=== PATIENT | male | born 1985 | race Caucasian/White ===

== ENCOUNTER 2019-07-06 13:41 | Emergency (ER) | payer OTHER, SELFPAY ==
--- NOTE | ~2019-07-06 | XR_ITS ---
EXAMINATION: XR chest 2V DATE: 07/06/2019 14:01 INDICATION: Chest pain and shortness of breath TECHNIQUE: PA and lateral views of the chest are obtained. COMPARISON: 03/22/2015 FINDINGS: The lungs are free of acute opacities. There is no pleural effusion or pneumothorax. The ca rdiomediastinal silhouette is normal. There is mild thoracic spondylosis. IMPRESSION: 1. No acute cardiopulmonary abnormality. Reviewed, dictated and finalized at location B.
--- NOTE | 2019-07-06 13:46 | ECG_ITS ---
Measurements Intervals [place] Rate: 98 P: 35 NM: 149 QRS: 37 QRSD: 102 T: 3 QT: 327 QTc: 418 Interpretive Statements SINUS RHYTHM MINIMAL Q WAVES- INFERIOR LEADS BORDERLINE T WAVE ABNORMALITY- INFERIOR LEADS BASELINE WANDER- V1 BORDERLINE ECG Electronically Signed On 07-06-2019 14:32:56 CDT by Arnold Coyle D.O.
[2019-07-06 13:47] VITALS: BP 176/92; PULSE 102; RESP 23; TEMP 36.8; O2SAT 100
[2019-07-06 13:52] VITALS: BP 176/92; PULSE 106; PULSE 110; RESP 15; O2SAT 100
--- NOTE | 2019-07-06 13:52 | ED.CHESTPAIN ---
HPI - Chest Pain General Chief Complaint: Chest Pain Stated Complaint: cp Time Seen by Provider: 07/06/19 13:46 Source: patient and RN notes reviewed Mode of arrival: ambulatory Limitations: no limitations History of Present Illness HPI narrative: Pt is a 34 y/o male who presents to the ED with c/o lt sided chest pain starting this morning. He notes that he was evaluated at an ED in [place] roughly 1 month ago for similar symptoms, and states that he was diagnosed with costochondritis. Pt notes that he woke up this morning around 7:30 AM with pain in the lt side of his chest. He describes his pain as someone pushing on his chest, but states that his pain intermittently aggravates into a stabbing pain. Pt currently rates his pain at 4-5/10. He also reports SOB, numbness/tingling in his lt arm and lt hand, and lightheadedness, but denies any rhinorrhea, sore throat, or cough. Pt states that he took Ibuprofen 600 mg for his pain, but denies having any relief. MD complaint: chest pain Onset (ago): hour(s) (6) Onset: awoke with symptoms Pain location: left chest Quality: other (stabbing) Relieving factors: nothing Associated symptoms: dyspnea and other (lightheadedness; numbness/tingling in lt arm and lt hand) Treatment prior to arrival: other (Ibuprofen) Related Data Home Medications Medication Instructions Recorded Confirmed pantoprazole PO 07/06/19 Allergies Allergy/AdvReac Type Severity Reaction Status Date / Time No Known Allergies Allergy Unknown Verified 07/06/19 13:51 Review of Systems Review of Systems: All systems reviewed & are unremarkable except as noted in HPI and below ENT: Denies nasal discharge and Denies sore throat Cardiovascular: Cardiovascular: Reports chest pain (lt sided) Respiratory: Respiratory: Denies cough and Reports dyspnea Neurologic: Reports numbness (lt arm and lt hand), Reports tingling (lt arm and lt hand) and Reports other (lightheadedness) PMF Past Medical History Medical History (Updated 07/06/19 @ 18:08 by Adrian Reed MD) Bronchitis Costochondritis GERD (gastroesophageal reflux disease) HLD (hyperlipidemia) Strep pharyngitis Surgical History Surgical History History of placement of ear tubes Social History Social History Smoking status: Never smoker Gender identity (if verbalized by the patient): Male Exam Narrative: Exam Narrative: GENERAL: Well-appearing, well-nourished, and in no acute distress. HEAD: Normocephalic, atraumatic. ENT:Mucous membranes moist. Neck: Pinpoint discomfort with reproducible tingling down left arm with palpation at C5 paraspinally but no midline tenderness. CHEST: Clear to auscultation. No respiratory distress. Mild discomfort with palpation anterior chest wall superiorly near the collarbone. HEART: Regular rate and rhythm. Normal peripheral pulses. ABDOMEN: Soft, nontender, nondistended. EXTREMITIES: Normal range of motion. No edema. SKIN: Warm, dry, no rash. NEURO: No focal deficits with sharp touch testing to left upper extremity with using a broken tongue depressor. Alert and oriented x3. Course Course Emergency Course: Patient reports arm tingling is been going on for months but there is no anesthesia on exam. Troponins negative x2 and d-dimer negative. Suspect musculoskeletal component with cervical radiculopathy. Recommend scheduled anti-inflammatories and follow-up with PCP as he may require an MRI if symptoms persist. Vital Signs Vital signs: Vital Signs Temperature 98.3 F 07/06/19 13:47 Pulse Rate 102 H 07/06/19 13:47 Respiratory Rate 23 H 07/06/19 13:47 Blood Pressure 176/92 H 07/06/19 13:47 Pulse Oximetry 100 07/06/19 13:47 Temperature 98.3 F 07/06/19 13:47 Pulse Rate 82 07/06/19 17:13 Respiratory Rate 18 07/06/19 17:13 Blood Pressure 129/61 07/06/19 15:42 Pulse Oximetry 98 0
[2019-07-06 14:13] LABS: Basophils Percent Auto 0.3 % (0.2-1.2); Eosinophils Absolute Auto 0.1 K/mm3 (0-0.3); Eosinophils Percent Auto 0.8 % (0-4.4); Hematocrit 42.6 % (42.0-52.0); Hemoglobin 14.3 g/dL (14.0-18.0); Immature Granulocyte Absolute 0.04 K/mm3 (0.00-0.031); Immature Granulocyte Percent A 0.5 % (0-0.5); Lymphocytes Absolute Auto 2.07 K/mm3 (0.9-3.2); Lymphocytes Percent Auto 23.7 % (18.3-44.2); Mean Corpuscular HGB Conc 33.6 g/dl (32-36); Mean Corpuscular Hemoglobin 29.1 pg (26-34); Mean Corpuscular Volume 86.8 fl (80-100); Monocytes Percent Auto 11.3 % (2.6-8.5); Neutrophils Absolute Auto 5.5 K/mm3 (1.3-6.7); Neutrophils Percent Auto 63.4 % (45.5-73.1); Platelet Count Result 307 k/mm3 (150-375); Red Blood Count 4.91 M/mm3 (4.6-6.20); White Blood Count 8.7 K/mm3 (4.5-10.0)
[2019-07-06 14:22] LABS: INR 0.9; Prothrombin Time 12.3 Seconds (11.1-14.7)
[2019-07-06 14:23] LABS: Partial Thromboplastin Time 27.5 SECONDS (22.3-36.8)
[2019-07-06 14:25] LABS: Blood Urea Nitrogen 11 mg/dL (9-20); Carbon Dioxide 29 mmol/L (22-30); Chloride 101 mmol/L (98-107); Estimated CRCL calculation 105 ml/min; Estimated Glomerular Filt Rate > 60; Glucose 88 mg/dL (75-110); Potassium 3.7 mmol/L (3.4-5.0); Sodium 138 mmol/L (137-145)
[2019-07-06 14:37] LABS: Troponin I < 0.012 ng/mL (0.000-0.034)
[2019-07-06 14:56] VITALS: BP 138/86; PULSE 89; RESP 15; O2SAT 99
[2019-07-06 15:34] LABS: D Dimer 0.27 ug/mL (<0.48)
[2019-07-06 15:42] VITALS: BP 129/61; PULSE 86; RESP 19; O2SAT 97
[2019-07-06 17:13] VITALS: PULSE 82; RESP 18; O2SAT 98
[2019-07-06 17:36] LABS: Troponin I < 0.012 ng/mL (0.000-0.034)
[2019-07-06 18:22] VITALS: BP 154/89; PULSE 78; RESP 16; O2SAT 100
== END 2019-07-06 18:23 | disposition home or self-care (01) ==
PROVIDERS: Emergency Provider Emergency Medicine
DX: R07.89 Other chest pain (principal); M54.12 Radiculopathy, cervical region; E78.5 Hyperlipidemia, unspecified; K21.9 Gastro-esophageal reflux disease without esophagitis; R94.31 Abnormal electrocardiogram [ECG] [EKG]
CPT/HCPCS: 36415; 71046; 80048; 84484; 85025; 85380; 85610; 85730; 93005; 96365; 99284; A9270; J0131

== ENCOUNTER 2021-08-27 11:05 | Outpatient (CLI) | payer OTHER, SELFPAY ==
--- NOTE | ~2021-08-27 | XR_ITS ---
EXAM: XR lumbar spine 2-3V HISTORY: M54.16 - Radiculopathy, lumbar region. RT SIDE PAIN . COMPARISON: None available. FINDINGS: 5 nonrib-bearing lumbar-type vertebral bodies. Pedicles intact. Normal vertebral body alig nment. Physiologic wedging at the thoracolumbar junction. Vertebral body heights preserved. Mild disc narrowing at L3-4 and L4-5, with marginal osteophytosis at L4-5. Facet sclerosis at L4-5 and L5-S1. No fracture or dislocation. IMPRESSION: Mild lower lumbar degenerative disc disease and facet arthropathy. Reviewed, dictated and finalized at location K.
--- NOTE | ~2021-08-27 | XR_ITS ---
EXAM: XR_CERV2-3V_CR HISTORY: M54.2 - Cervicalgia, LT SIDE PAIN . COMPARISON: None available. FINDINGS: Craniocervical association and atlantoaxial joint are normal. No prevertebral soft tissue swelling. Lateral scoliosis centered at the cervicothoracic junction, may be positional. Trace deandre listhesis from C2 to C4. Marginal osteophytosis at C5-6. Normal facets and posterior elements. IMPRESSION: Trace anterolistheses of the upper cervical spine, presumably on a degenerative basis. Mi ld degenerative disc disease at C5-6. Reviewed, dictated and finalized at location K. IMPRESSION: Trace anterolistheses of the upper cervical spine, presumably on a degenerative basis. Mild degenerative disc disease at C5-6.
== END 2021-08-27 11:06 | disposition home or self-care (01) ==
LOC: ANHIMG 11:11
PROVIDERS: PCP Family Medicine; Visit Provider Nurse Practitioner Family
DX: R20.0 Anesthesia of skin (principal); R20.2 Paresthesia of skin; M54.16 Radiculopathy, lumbar region; M51.36 Other intervertebral disc degeneration, lumbar region; M50.322 Other cervical disc degeneration at C5-C6 level
CPT/HCPCS: 72040; 72100

== ENCOUNTER → 2021-10-30 13:51 | Outpatient (CLI) | payer OTHER, SELFPAY ==
--- NOTE | ~2021-10-30 | CT_ITS ---
EXAMINATION: CT brain wo con DATE: 10/30/2021 14:05 INDICATION: Headache. Visual disturbance. TECHNIQUE: Computed tomography (CT) of the head was performed without intravenous contrast. The mA wa s adjusted according to patient size. Iterative reconstruction technique was employed. Exam dose: 59 9.57 mGy-cm total exam DLP. COMPARISON: None FINDINGS: Mild bilateral basal ganglia calcification. Normal ventricular size. Normal valdez-white devin er differentiation. No intracranial mass lesion or hemorrhage or cerebrovascular accident is detected . No midline shift or mass effect. No subdural or epidural hematoma. The mastoid air cells and included paranasal sinuses are normally developed and aerated. No fracture or bone destruction of the cranial vault. IMPRESSION: No significant intracranial abnormality Reviewed, dictated and finalized at Location A. Reviewed, dictated and finalized at location B.
== END ==
PROVIDERS: PCP Family Medicine; Visit Provider Nurse Practitioner
DX: R51.9 Headache, unspecified (principal); H53.9 Unspecified visual disturbance
CPT/HCPCS: 70450

== ENCOUNTER → 2022-03-13 15:46 | Outpatient (CLI) | payer OTHER, SELFPAY ==
--- NOTE | ~2022-03-13 | US_ITS ---
US soft tissue groin LT 03/13/2022 16:08 Indication: Left lower quadrant pain for one month Procedure: High-resolution ultrasound of the left lower abdomen in the area of palpable concern. Comparison: No prior studies for comparison. Findings: There are multiple normal-appearing lymph nodes in the left lower quadrant, largest measuri ng 2 cm. These lymph nodes can retain their normal fatty hilum. No hernia is visualized. Impression: 1: Normal appearing lymph nodes measuring up to 2 cm in the area of palpable concern in the left lowe r quadrant, likely reactive. Reviewed, dictated and finalized at location A. PT COORDINATOR Impression: 1: Normal appearing lymph nodes measuring up to 2 cm in the area of palpable co ncern in the left lower quadrant, likely reactive.
== END ==
PROVIDERS: PCP Nurse Practitioner; Visit Provider Nurse Practitioner
DX: R10.32 Left lower quadrant pain (principal)
CPT/HCPCS: 76882

== ENCOUNTER 2023-04-15 10:05 | Outpatient (CLI) | payer OTHER, SELFPAY ==
[2023-04-15 18:46] LABS: Hematocrit 46.5 % (42.0-52.0); Hemoglobin 15.6 g/dL (14.0-18.0); Mean Corpuscular HGB Conc 33.5 g/dl (32-36); Mean Corpuscular Hemoglobin 29.6 pg (26-34); Mean Corpuscular Volume 88.2 fl (80-100); Platelet Count Result 325 k/mm3 (150-375); Red Blood Count 5.27 M/mm3 (4.6-6.20); Red Cell Distribution Width 13.2 % (11.5-14.5); White Blood Count 8.2 K/mm3 (4.5-10.0)
[2023-04-15 21:05] LABS: Alanine Aminotransferase 50 U/L (6-50); Albumin Level 4.7 g/dL (3.5-5.1); Alkaline Phosphatase 87 U/L (38-126); Anion Gap 11 mmol/L (8-16); Aspartate Amino Transferase 67 U/L (17-59); Bilirubin,Total 1.1 mg/dL (0.2-1.3); Blood Urea Nitrogen 18 mg/dL (9-20); Calcium 9.4 mg/dL (8.4-10.2); Carbon Dioxide 29 mmol/L (22-30); Chloride 99 mmol/L (98-107); Cholesterol 260 mg/dL (0-200); Estimated Glomerular Filt Rate > 60; Glucose 75 mg/dL (65-110); HDL Direct 44 mg/dL; Potassium 4.2 mmol/L (3.4-5.0); Sodium 139 mmol/L (137-145); Triglycerides 86 mg/dL (<150)
[2023-04-15 21:16] LABS: LDL Cholesterol Direct 169 mg/dL
[2023-04-18 23:33] LABS: Vitamin D 1,25 (OH)2 Total 52 pg/mL (18-72); Vitamin D2 1,25 (OH)2 <8 pg/mL; Vitamin D3 1,25 (OH)2 52 pg/mL
== END 2023-04-15 10:06 | disposition home or self-care (01) ==
LOC: ANHGOSHLAB 10:06
PROVIDERS: PCP Family Medicine; Visit Provider Nurse Practitioner Family
DX: E78.5 Hyperlipidemia, unspecified (principal); E55.9 Vitamin D deficiency, unspecified; Z13.29 Encounter for screening for other suspected endocrine disorder
CPT/HCPCS: 36415; 80053; 80061; 82652; 84443; 85027

== ENCOUNTER 2023-04-16 14:49 | Outpatient (CLI) | payer OTHER, SELFPAY ==
[2023-04-16 20:37] LABS: Hepatitis B Surface Antigen Negative (Negative)
[2023-04-16 20:46] LABS: HAV RESULT Negative (Negative); Hepatitis B Core IgM Result Negative (Negative)
[2023-04-16 20:55] LABS: Hepatitis C Virus Antibody Negative (Negative)
== END 2023-04-16 14:50 | disposition home or self-care (01) ==
PROVIDERS: PCP Family Medicine; Visit Provider Nurse Practitioner Family
DX: R74.8 Abnormal levels of other serum enzymes (principal)
CPT/HCPCS: 36415; 80074

== ENCOUNTER → 2023-04-20 08:54 | Outpatient (CLI) | payer OTHER, SELFPAY ==
--- NOTE | ~2023-04-20 | CT_ITS ---
EXAMINATION: CT abdomen pelvis wo con DATE: 04/20/2023 09:07 INDICATION: Chronic prostatitis TECHNIQUE: Computed tomography (CT) of the abdomen and pelvis was performed without intravenous contr ast. Automated exposure control and iterative reconstruction technique were employed. Exam dose: 121 0.73 mGy-cm total exam DLP. COMPARISON: None. FINDINGS: The lung bases are clear. Normal heart size. No pericardial or pleural effusion. The liver, gallbladder, bile ducts, spleen, pancreas, pancreatic duct, and adrenal glands and kidneys are unremarkable. No urinary tract calculus or hydroureteronephrosis. The urinary bladder is evacuat ed. The prostate gland and seminal vesicles are unremarkable. Very small sliding hiatal hernia is suggested. Normal appendix. No bowel obstruction, bowel wall thic kening, pneumatosis or intraperitoneal free air. Normal caliber of the abdominal aorta. No intraperitoneal or retroperitoneal or pelvic mass lesion or adenopathy or ascites. No suspicious osteolytic or osteoblastic lesions. IMPRESSION: Suggestion of very small sliding hiatal hernia; otherwise unremarkable examination Reviewed, dictated and finalized at Location A. Reviewed, dictated and finalized at location L. ATIENT PHLEBOTOMIST IMPRESSION: Suggestion of very small sliding hiatal hernia; otherwise unremark able examination
== END ==
PROVIDERS: PCP Urology; Visit Provider Urology
DX: N41.1 Chronic prostatitis (principal)
CPT/HCPCS: 74176

== ENCOUNTER 2023-06-30 22:13 | Emergency (ER) | payer OTHER, SELFPAY ==
--- NOTE | ~2023-06-30 | XR_ITS ---
EXAMINATION: XR chest 2V DATE: 06/30/2023 22:32 INDICATION: Chest pain TECHNIQUE: PA and lateral views of the chest are obtained. COMPARISON: 07/06/2019 FINDINGS: The lungs are free of acute opacities. No pleural effusion or pneumothorax. The cardiomedia stinal silhouette is normal. The visualized bones and soft tissues are unremarkable. IMPRESSION: 1. No acute cardiopulmonary abnormality. Reviewed, dictated and finalized at location F.
[2023-06-30 22:20] VITALS: BP 172/100; PULSE 90; RESP 18; TEMP 36.5; O2SAT 99
--- NOTE | 2023-06-30 22:21 | ECG_ITS ---
Measurements Intervals [place] Rate: 88 P: 43 MS: 149 QRS: 43 QRSD: 106 T: 16 QT: 348 QTc: 422 Interpretive Statements SINUS RHYTHM CONSIDER INFERIOR INFARCT, AGE INDETERMINATE BASELINE WANDER- V3 ABNORMAL ECG COMPARED TO ECG 07/06/2019 13:46:45 NO SIGNIFICANT CHANGES Electronically Signed On 07-01-2023 6:27:01 CDT by Arnold Coyle D.O.
[2023-06-30 22:29] LABS: Basophils Absolute Auto 0.1 K/mm3 (0.0-0.1); Basophils Percent Auto 0.5 % (0.2-1.2); Eosinophils Absolute Auto 0.1 K/mm3 (0-0.3); Eosinophils Percent Auto 0.5 % (0-4.4); Hematocrit 48.3 % (42.0-52.0); Hemoglobin 16.4 g/dL (14.0-18.0); Immature Granulocyte Absolute 0.05 K/mm3 (0.00-0.031); Immature Granulocyte Percent A 0.4 % (0-0.5); Lymphocytes Absolute Auto 3.12 K/mm3 (0.9-3.2); Lymphocytes Percent Auto 26.9 % (18.3-44.2); Mean Corpuscular Hemoglobin 29.3 pg (26-34); Mean Corpuscular Volume 86.4 fl (80-100); Mean Platelet Volume 9.5 fl (7.4-10.4); Monocytes Absolute Auto 1.1 K/mm3 (0.1-0.6); Monocytes Percent Auto 9.2 % (2.6-8.5); Neutrophils Absolute Auto 7.3 K/mm3 (1.3-6.7); Neutrophils Percent Auto 62.5 % (45.5-73.1); Platelet Count Result 354 k/mm3 (150-375); Red Blood Count 5.59 M/mm3 (4.6-6.20); Red Cell Distribution Width 12.7 % (11.5-14.5); White Blood Count 11.6 K/mm3 (4.5-10.0)
[2023-06-30 22:45] LABS: Prothrombin Time 13.2 Seconds (11.1-14.7)
[2023-06-30 22:46] LABS: Partial Thromboplastin Time 27.5 Seconds (22.3-36.8)
[2023-06-30 22:49] LABS: Alanine Aminotransferase 47 U/L (6-50); Albumin Level 4.9 g/dL (3.5-5.1); Alkaline Phosphatase 93 U/L (38-126); Anion Gap 6 mmol/L (8-16); Aspartate Amino Transferase 58 U/L (17-59); Bilirubin,Total 1.1 mg/dL (0.2-1.3); Blood Urea Nitrogen 19 mg/dL (9-20); Calcium 9.5 mg/dL (8.4-10.2); Carbon Dioxide 31 mmol/L (22-30); Chloride 99 mmol/L (98-107); Estimated CRCL calculation 113 ml/min; Estimated Glomerular Filt Rate > 60; Glucose 85 mg/dL (65-110); Lipase 48 U/L (23-300); Potassium 3.7 mmol/L (3.4-5.0); Sodium 136 mmol/L (137-145)
[2023-06-30 22:52] LABS: Troponin I < 0.012 ng/mL (0.000-0.034)
[2023-06-30 23:01] VITALS: BP 153/95; PULSE 83; RESP 11; O2SAT 96
[2023-06-30 23:06] VITALS: O2SAT 97
[2023-06-30 23:16] VITALS: BP 147/90; PULSE 82; RESP 13; O2SAT 96
--- NOTE | 2023-06-30 23:40 | ED.CHESTPAIN ---
HPI - Chest Pain General Chief Complaint: Chest Pain Stated Complaint: chest pain, high blood pressure Time Seen by Provider: 06/30/23 22:41 History of Present Illness HPI narrative: 38-year-old male with a history of GERD and anxiety presents to emergency department for palpitations and substernal chest pain at x2 days. Patient states when he is asleep at night he can feel his heart beating out of his chest describes it as ?thump thump?. States he home from work trip today and had his girlfriend check his blood pressure and it was 146/101. States they checked it multiple times after that continue to climb up to 168/117 and he became lightheaded which prompted him to come to the ER. Patient states earlier in the year he was told by his PCP to monitor his blood pressures daily for 2 weeks. States the reported back and the decision was made to not start antihypertensives at that time. He is currently not on any medications and denies history of hyperlipidemia, diabetes, CAD or family history of CAD. States that chest pain is nonradiating does not associated dyspnea, diaphoresis, nausea or vomiting. Patient states he took anxiety medications prior to arrival and his symptoms have resolved. States he is curious if he was having an anxiety attack prior to arrival. Related Data Allergies Allergy/AdvReac Type Severity Reaction Status Date / Time Sulfa (Sulfonamide Allergy Hives Verified 04/14/23 15:35 Antibiotics) Review of Systems Review of Systems: CONSTITUTIONAL: Denies fever, chills, or sweats. EYES: Denies visual changes, redness, or discharge. ENT: Denies rhinorrhea, congestion, sore throat, or otalgia. CARDIOVASCULAR: See HPI RESPIRATORY: Denies cough or dyspnea. GASTROINTESTINAL: Denies abdominal pain, nausea, vomiting, or diarrhea. GENITOURINARY: Denies dysuria or hematuria. SKIN: Denies rash or itching. MUSCULOSKELETAL: Denies back pain, joint pain, or myalgia. NEUROLOGIC: Denies headache, numbness, or weakness. PSYCHIATRIC: Denies anxiety or depression. [facility] Past Medical History Medical History Chronic neck and back pain Costochondritis GERD (gastroesophageal reflux disease) Hx of vertigo Seasonal allergies Surgical History Surgical History History of placement of ear tubes (~1986) Family History Family History Father Malignant neoplasm of prostate Social History Social History Smoking status: Never smoker Alcohol intake: current Alcohol use details: socially Substance use: never Substance use type: does not use Lack of Transportation: No Lack of Food: Never True Current Housing: I Have Housing Concerned About Future Housing: No Difficulty Paying Gas/Electric Bills: No Difficulty Paying for Meds: No Currently Unemployed: No Education: Trade/Vocational Certificate Difficulty w/ Childcare or Family Care: No Living arrangements: with family Occupation/Education: occupation Additional occupation/education comments: Sales Gender identity (if verbalized by the patient): Male Sexual Orientation (if Verbalized by the Patient): Straight or Heterosexual Agree to blood products: Yes Exam Narrative: GENERAL: Well-appearing, well-nourished, and in no acute distress. HEAD: Normocephalic, atraumatic. EYES: PERRLA and EOMI. ENT: Nares clear, no rhinorrhea or epistaxis. Mucous membranes moist. NECK: Supple. CHEST: Clear to auscultation. No respiratory distress. HEART: Regular rate and rhythm. No murmur heard. Normal peripheral pulses. ABDOMEN: Soft, nontender, nondistended, normal active bowel sounds. EXTREMITIES: Normal range of motion. No edema. Negative Homans bilaterally SKIN: Warm, dry, no rash. NEURO: No focal deficits. Alert and orie
[2023-06-30] MEDS: SODIUM CHLORIDE 0.9% IV 1,000 ML 999 ML IV CONT (23:53)
[2023-07-01 00:01] VITALS: BP 149/87; PULSE 73; RESP 17; O2SAT 97
[2023-07-01 00:31] VITALS: BP 157/86; PULSE 71; RESP 14; O2SAT 97
--- NOTE | 2023-07-01 01:13 | ECG_ITS ---
Measurements Intervals [place] Rate: 73 P: 34 CO: 155 QRS: 15 QRSD: 101 T: 1 QT: 384 QTc: 426 Interpretive Statements SINUS RHYTHM DELAYED PRECORDIAL R/S TRANSITION CONSIDER INFERIOR INFARCT, AGE INDETERMINATE ABNORMAL ECG COMPARED TO ECG 06/30/2023 22:18:39 NO SIGNIFICANT CHANGES Electronically Signed On 07-01-2023 6:34:40 CDT by Arnold Coyle D.O.
[2023-07-01 01:15] VITALS: PULSE 77; RESP 15; O2SAT 98
[2023-07-01 01:16] VITALS: BP 150/80; PULSE 79; RESP 18; O2SAT 97
[2023-07-01 01:54] LABS: Troponin I < 0.012 ng/mL (0.000-0.034)
[2023-07-01 02:00] VITALS: PULSE 82; RESP 18; O2SAT 98
[2023-07-01 02:15] VITALS: PULSE 79; RESP 19; O2SAT 98
== END 2023-07-01 02:57 | disposition home or self-care (01) ==
PROVIDERS: Emergency Medicine; Emergency Provider Physician Assistant; PCP Family Medicine
DX: R00.2 Palpitations (principal); R07.89 Other chest pain; R03.0 Elevated blood-pressure reading, without diagnosis of hypertension; K21.9 Gastro-esophageal reflux disease without esophagitis
CPT/HCPCS: 36415; 71046; 80053; 83690; 84484; 85025; 85610; 85730; 93005; 96360; 96361; 99284; J7030

== ENCOUNTER 2024-07-10 11:03 | Outpatient (CLI) | payer BC, SELFPAY ==
--- OUTSIDE RECORDS SUMMARY | 2024-07-10 12:36 | XMS_ITS | Clinical Summary ---
Author Organization [facility] Address [address] [place] [id number] Care Team Providers Care Tdp Displays Analyst Name Role Phone Unavailable Primary Care Provider Unavailabl e Social History Tobacco Use Types Packs/Day Years Used Date Smoking Tobacco: Never Assessed Sex and Gender Information Value Date Recorded Sex Assigned at Not on file Legal Sex Male 2:41 PM CDT Gender Identity Not on file Sexual Orientation Not on file Plan of Treatment Health Maintenance Due Date Last Done Comments Annual Physical 1989 Hepatitis C 2004 DTaP, Tdap and Td Vaccines ( 1 - Tdap) 2005 Hepatitis B Vaccines (1 of 3 - 19+ 3-dose series) 2005 COVID-19 Vaccine (2023-2 5 season) 2023 Influenza Adult (#1) 2024 HPV Vaccines Aged Out No longer eligi ble based on patient's age to complete this topic Meningococcal B Vaccine Aged Out No l onger eligible based on patient's age to complete this topic Meningococcal Vaccine Aged Out No moody kathy eligible based on patient's age to complete this topic Pneumococcal Vaccine: Pediat rics (0 to 5 Years) and At-Risk Patients (6 to 64 Years) Aged Out No longer eligible b ased on patient's age to complete this topic RSV Immunizations Under 20 Months Aged Out No longer eligible based on patient's age to complete this topic
--- OUTSIDE RECORDS SUMMARY | 2024-07-10 12:36 | XMS_ITS | Clinical Summary ---
Author Organization [facility] Address [address] [place] [address] Care Team Providers Care Gas Attendant Name Role Phone Beltran La MD Primary Care Provider [phone] Source Comments [facility],non-owned Affiliates and Associated Physician Practices is amultiple site organization consisting of ambulatory clinics and hospital sitesin [place], [place], [place] and [place]. This disclosure is being madepursuant to the Care Everywhere program and may not contain all information available regarding this patient. Last updated 17.[facility] Allergies No known active allergies Medications * Be aware that medications may not be up to date on this document. Alwaysverify current medications with the patient. Medication Sig Dispensed Refills Start Date End Date Status fluticasone propionate (FLONASE) 50 MCG/ACT nasal spray [place] 2 (two) sprays into each nostril once daily 1 g 09/11/2020 Active albuterol HFA (PROVENTIL;VENTOLIN;P ROAIR) 108 (90 Base) MCG/ACT inhaler Inhale 2 (two) puffs by mouth every 6 hours as needed for Wheezing or Cough 1 g 09/11/2020 Active Active Problems Problem Noted Date Diagnosed Date Anxiety 07/05/2019 Overview (09/11/2020): Last Assessment & Plan: Trial Wellbutrin 150 BMI 38.0-38.9,adult 07/05/2019 Overview (09/11/2020): BMI Follow-up includes: nutrition counseling, exercise counseling and education provided. Gastroesophageal reflux disease 07/05/2019 Motion sickness 07/05/2019 Overview (09/11/2020): Last Assessment & Plan: Rx Meclizine prn Can try scopolamine patches if meclizine causes drowsiness Numbness of left hand 07/05/2019 Overview (09/11/2020): Last Assessment & Plan: Likely lumbar radiculopathy, no red flag sx Provided back exercises to perform at home Consider formal PT in future if needed Last Assessment & Plan: No weakness Likely carpal tunnel Trial nighttime wrist splints Notify me if symptoms worsen Other chest pain 07/05/2019 Overview (09/11/2020): Last Assessment & Plan: Likely due to GERD as it resolves with Nexium. Negative cardiac workup at [facility] per patient report (will get records). Treat GERD as above Continue to monitor Vertigo 07/05/2019 Overview (09/11/2020): Last Assessment & Plan: likely BPPV - recommended Belem maneuver, Meclizine prn Family History Medical History Relation Name Comments Hyperlipidemia Father Hypertension Father Relation Name Status Comments Father Alive Mother Alive Social History Tobacco Use Types Packs/Day Years Used Date Smoking Tobacco: Never Smokeless Tobacco: Never Alcohol Use Standard Drinks/Week Comments Yes 0 (1 standard drink = 0.6 oz pur e alcohol) rarely Sex and Gender Information Value Date Recorded Sex Assigned at Not on file Gender Identity Not on file Sexual Orientation Not on file Last Filed Vital Signs Vital Sign Reading Time Taken Comments Blood Pressure 120/80 09/11/2020 2:36 PM CDT Pulse 86 09/11/2020 2:36 PM CDT Temperature 36.9 C (98.5 F) 09/11/2020 2:36 PM CDT Respiratory Rate 17 09/11/2020 2:36 PM CDT Oxygen Saturation 98% 11/11/2017 8:56 AM CDT Inhaled Oxygen Concentration - - Weight 117.9 kg (260 lb) 09/11/2020 2:36 PM CDT Height 175.3 cm (5' 9 ) 09/11/2020 2:36 PM CDT Body Mass Index 38.4 09/11/2020 2:36 PM CDT Plan of Treatment Health Maintenance Due Date Last Done Comments HIV SCREENING 2001 DTAP/TDAP/TD VACCINES (1 - Tdap) 2005 HEPATITIS B VACCINE (1 of 3 - 19+ 3-dose series) 2005 COVID-19 VACCINE (3 - 2023-2 5 season) 2023 08/08/2020, 07/13/2020 INFLUENZA VACCINE (#1) 2023 07/05/2019 DEPRESSION SCREENING 04/12/2024 ZOSTER VACCINE (1 of 2) 2036 HEPATITIS C SCREENING Completed 09/21/2017 HIB VACCINE Aged Out No longer eligi ble based on patient's age to complete this topic HPV VACCINE Aged Out No longer eligi ble based on patient's age to complete this topic MENINGOCOCCAL (Group B) VACCINE SHARED DECISION-MAKING Aged Out No longer eligible based on patient's age to complete this topic MENINGOCOCCAL GROUPS A/C/Y/W VACCINE Aged Out No longer eligible b ased on patient's age to complete this topic PNEUMOCOCCAL VACCINE Aged Out No long er eligible based on patient's age to complete this topic Procedures Procedure Name Priority Date/Time Associated Diagnosis Comments HEPATITIS C ANTIBODY Routine 09/21/2017 8:43 AM CDT Screening examination for STD (sexually transmitted disease) from Last 3 Months or Most Recently Relevant to Health Maintenance Results * HEPATITIS C ANTIBODY (09/21/2017 8:43 AM CDT) Hepatitis C Antibody Non Reactive Non Reactive [facility] INSURANCE BILL Comment: Non Reactive - Antibodies to Hepatitis C virus (HCV) were no t detected, result does not exclude early acute HCV infection. FASTING Blood BLOOD SPECIMEN / Unknown 09/21/2017 8:43 AM CDT 09/21/2017 Narrative Resulting Agency Comment [facility] [address] [facility] [id number] Ludwin Kay MD LAB - CHEMISTRY CALLIE DYER [facility] INSURANCE BILL [address] [place] [id number] from Last 3 Months or Most Recently Relevant to Health Maintenance Care Teams Gas Attendant Relationship Specialty Start Date End Date Beltran La MD [address] [facility] [address] [place] [address] PCP - General Internal Medicine 02/12/20
[2024-07-10 13:27] LABS: Basophils Absolute Auto 0.1 K/mm3 (0.0-0.1); Basophils Percent Auto 0.7 % (0.2-1.2); Eosinophils Percent Auto 0.4 % (0-4.4); Hematocrit 45.7 % (42.0-52.0); Hemoglobin 15.3 g/dL (14.0-18.0); Immature Granulocyte Absolute 0.02 K/mm3 (0.00-0.031); Immature Granulocyte Percent A 0.3 % (0-0.5); Lymphocytes Absolute Auto 2.17 K/mm3 (0.9-3.2); Lymphocytes Percent Auto 30.2 % (18.3-44.2); Mean Corpuscular HGB Conc 33.5 g/dl (32-36); Mean Corpuscular Hemoglobin 29.6 pg (26-34); Mean Corpuscular Volume 88.4 fl (80-100); Mean Platelet Volume 10.2 fl (7.4-10.4); Monocytes Absolute Auto 0.7 K/mm3 (0.1-0.6); Monocytes Percent Auto 9.3 % (2.6-8.5); Neutrophils Absolute Auto 4.3 K/mm3 (1.3-6.7); Neutrophils Percent Auto 59.1 % (45.5-73.1); Platelet Count Result 347 k/mm3 (150-375); Red Blood Count 5.17 M/mm3 (4.6-6.20); Red Cell Distribution Width 13.2 % (11.5-14.5); White Blood Count 7.2 K/mm3 (4.5-10.0)
[2024-07-10 13:59] LABS: Alanine Aminotransferase 28 U/L (6-50); Albumin Level 4.7 g/dL (3.5-5.1); Alkaline Phosphatase 74 U/L (38-126); Anion Gap 10 mmol/L (4-12); Aspartate Amino Transferase 56 U/L (17-59); Bilirubin,Total 0.7 mg/dL (0.2-1.3); Blood Urea Nitrogen 11 mg/dL (9-20); Calcium 9.3 mg/dL (8.4-10.2); Carbon Dioxide 30 mmol/L (22-30); Chloride 101 mmol/L (98-107); Cholesterol 201 mg/dL (0-200); Estimated Glomerular Filt Rate > 60; Glucose 85 mg/dL (65-110); HDL Direct 51 mg/dL; Potassium 4.2 mmol/L (3.4-5.0); Sodium 141 mmol/L (137-145); Triglycerides 53 mg/dL (<150)
[2024-07-10 14:12] LABS: LDL Cholesterol Direct 116 mg/dL
[2024-07-10 14:28] LABS: Vitamin D 25 Hydroxy 38.5 ng/mL
== END 2024-07-10 11:04 | disposition home or self-care (01) ==
LOC: ANHGOSHLAB 11:04
PROVIDERS: PCP Nurse Practitioner Family; Visit Provider Nurse Practitioner Family
DX: E55.9 Vitamin D deficiency, unspecified (principal); E78.5 Hyperlipidemia, unspecified; Z79.899 Other long term (current) drug therapy
CPT/HCPCS: 36415; 80053; 80061; 82306; 85025